=== PATIENT | male | born 1960 | race Caucasian/White ===

== ENCOUNTER → 2016-06-30 | Outpatient (REF) | payer MEDICARE, MEDICAID ==
[~2016-06-30] MED LIST: ACAM0.05 PO; BUPR10TASR PO; EFFE37.527 PO; EFFE75CA75 PO; INDE80CA PO; NORCOTAB PO; OMEP40CA2 PO; PERC5TAB6 PO; PRIM50TA6 PO; TRAZ100T4 PO; TRAZ50TA4 PO; VENL37CA PO; ZONI25CA2 PO
[2016-06-30 12:30] LABS: ALBUMIN 3.7 GM/DL (3.2-5.2); ALBUMIN/GLOBULIN RATIO 1.12 (1.00-1.93); BILIRUBIN,TOTAL 0.4 MG/DL (0.2-1.0); CALCIUM LEVEL 8.9 MG/DL (8.5-10.1); CREATININE FOR GFR 1.34 MG/DL (0.70-1.30); GLOMERULAR FILTRATION RATE 58.5 (>56); POTASSIUM SERUM 4.4 MEQ/L (3.5-5.1)
[2016-06-30 12:36] LABS: BASO # 0.1 K/mm3 (0.0-0.2); BASO % 1.1 % (0.0-1.0); EOS # 0.3 K/mm3 (0.0-0.50); EOS % 5.7 % (0.0-3.0); LYMPH # 1.5 K/mm3 (1.5-4.5); LYMPH % 26.4 % (24.0-44.0); MEAN CORPUSCULAR HGB CONC 34.3 g/dl (32.0-36.5); MEAN CORPUSCULAR VOLUME 93.4 fl (80.0-96.0); MONO # 0.4 K/mm3 (0.0-0.8); MONO % 7.7 % (0.0-5.0); NEUTROPHILS # 3.1 K/mm3 (1.8-7.7); NEUTROPHILS % 57.7 % (36.0-66.0); RED CELL DISTRIBUTION WIDTH 12.7 % (11.5-14.5); WHITE BLOOD COUNT 5.4 K/mm3 (4.0-10.0)
== END ==
LOC: M LABDRAW1 11:25
PROVIDERS: ATTEND Physician Assistant Medical
DX: E04.9 Nontoxic goiter, unspecified (principal); E78.2 Mixed hyperlipidemia; E55.9 Vitamin D deficiency, unspecified; D64.9 Anemia, unspecified

== ENCOUNTER → 2016-07-02 | Day surgery (SDC) | payer MEDICARE, MEDICAID ==
[~2016-07-02] VITALS: Ht 182.9 cm; Wt 95.3 kg
[~2016-07-02] MED LIST changes: +BUPIVACAINE HCL 0.25% 30 ML VIAL As Ordered ONE; +BUPIVACAINE HCL 0.25% 30 ML VIAL XX ONE; +GLYCOPYRROLATE INJ 0.2 MG/ML 2 ML VIAL As Ordered ONE; +KETOROLAC 60 MG/2 ML VIAL (J1885) As Ordered ONE; +LIDOCAINE 1% SDV INJ 30 ML VIAL As Ordered ONE; +LIDOCAINE 2% INJ 100 MG/5 ML SDV (FOR ANES.) As Ordered ONE; +LR 1,000 ML IV SCH; +METOCLOPRAMIDE INJ 10MG/2ML VIAL (J2765) As Ordered ONE; +MIDAZOLAM INJ 2 MG/2 ML VIAL (J2250) As Ordered ONE; +NEOSTIGMINE 1MG/ML 5 ML SYRINGE (J2710) As Ordered ONE; +ONDANSETRON 4MG/2ML VIAL (J2405) As Ordered ONE; +ONDANSETRON 4MG/2ML VIAL (J2405) IV PRN; +PERCOCET 5MG/325MG TAB PO PRN; +PROPOFOL 200 MG/20 ML VIAL As Ordered ONE; +ROCURONIUM BROMIDE 50 MG/5 ML VIAL As Ordered ONE; +dexameTHASONE 4 MG/ML 1ML VIAL (J1100) As Ordered ONE; +ePHEDrine SULFATE 25 MG/5 ML(5MG/ML) SYRINGE As Ordered ONE; +fentaNYL 100 MCG/2 ML INJECTION (J3010) As Ordered ONE; +fentaNYL 250 MCG/5 ML INJECTION (J3010) As Ordered ONE
[2016-07-02] MEDS: fentaNYL 100 MCG/2 ML INJECTION (J3010) IV PRN ×4 (09:30→09:55)
[2016-07-02 11:05] VITALS: BP 131/87
--- NOTE | 2016-07-03 09:07 | RO ---
DATE OF PROCEDURE: 07/02/2016 PREOPERATIVE DIAGNOSIS: Right inguinal hernia. POSTOPERATIVE DIAGNOSIS: Direct right inguinal hernia. PROCEDURE PERFORMED: Right inguinal herniorrhaphy with mesh. SURGEON: Dr. Wilmar Bella. COTTON STOMPER: ANESTHESIA: General. INDICATIONS FOR PROCEDURE: The patient is a 56-year-old man who has noticed discomfort in the right inguinal area. Examination confirmed a small reducible right inguinal hernia. He is now for a right inguinal herniorrhaphy with mesh. OPERATIVE PROCEDURE: The patient was placed under general anesthesia. The patient's lower abdomen, groins and genitalia were prepped and draped in a sterile fashion. An approximately 8-10 cm oblique right lower quadrant incision was made over the course of the inguinal canal. The incision was deepened through the subcutaneous tissues using the cautery. The external oblique was opened in direction of its fibers into the external ring. The spermatic cord was isolated at the pubic tubercle and elevated with a Mireya drain. The cord was freed up to the internal ring. The patient was noted to have a protrusion of preperitoneal fat at the internal ring and this was dissected free from the overlying cord and then clamped, divided and ligated with #0 chromic. The patient also had a significant direct hernia, particularly in the lateral half of the inguinal floor. There was no evidence of an indirect inguinal hernia sac within the spermatic cord. A repair of the inguinal floor was performed in a bikini fashion by placing interrupted simple sutures of #2-0 Ethibond between the shelving edge of the inguinal ligament and the transversalis fascia medially. These were placed primarily to reduce the bulging hernia and allow placement of the mesh. A 6 x 11 cm piece of ultra Pro mesh was then selected. This was lot number [id number]. The mesh was trimmed to fit the inguinal floor. This was sutured at the pubic tubercle with a #3-0 Prolene which was carried along the shelving edge of the inguinal ligament suturing this in place. The mesh had been split to fit about the spermatic cord. The medial portion of the mesh was then tacked down to the underlying internal oblique muscle and fascia using interrupted simple sutures of #3-0 Vicryl. The tails of the mesh were overlapped lateral to the cord and sutured in place with #3-0 Vicryl. This appeared to give a nice reconstruction of the inguinal floor. were infiltrated into the inguinal floor and the spermatic cord. The external oblique was closed with a running suture of #0 Vicryl. The subcutaneous tissues were closed with chromic. The skin edges were approximated with a running subcuticular #4-0 Vicryl and Steri-Strips. An additional 10 mL of 1% Marcaine were infiltrated along the wound edges. Steri-Strips and a light dressing were applied. The patient tolerated the procedure well without apparent complication. He was awakened in the operating room, extubated and moved to the recovery room in stable condition.
== END | disposition home or self-care (01) ==
LOC: M SDC 05:56
PROVIDERS: ATTEND Surgery
DX: K40.90 Unilateral inguinal hernia, without obstruction or gangrene, not specified as recurrent (principal); I25.2 Old myocardial infarction; I10 Essential (primary) hypertension; E04.1 Nontoxic single thyroid nodule; F41.9 Anxiety disorder, unspecified; F32.9 Major depressive disorder, single episode, unspecified; K21.9 Gastro-esophageal reflux disease without esophagitis; Z86.73 Personal history of transient ischemic attack (TIA), and cerebral infarction without residual deficits; Z79.899 Other long term (current) drug therapy; Z85.528 Personal history of other malignant neoplasm of kidney
CPT/HCPCS: 49505; 88302; C1781; J1100; J1885; J2250; J2405; J2710; J2765; J3010

== ENCOUNTER → 2016-09-20 | Outpatient (CLI) | payer MEDICARE, MEDICAID ==
[~2016-09-20] MED LIST changes: -BUPIVACAINE HCL 0.25% 30 ML VIAL As Ordered ONE; -BUPIVACAINE HCL 0.25% 30 ML VIAL XX ONE; -GLYCOPYRROLATE INJ 0.2 MG/ML 2 ML VIAL As Ordered ONE; -KETOROLAC 60 MG/2 ML VIAL (J1885) As Ordered ONE; -LIDOCAINE 1% SDV INJ 30 ML VIAL As Ordered ONE; -LIDOCAINE 2% INJ 100 MG/5 ML SDV (FOR ANES.) As Ordered ONE; -LR 1,000 ML IV SCH; -METOCLOPRAMIDE INJ 10MG/2ML VIAL (J2765) As Ordered ONE; -MIDAZOLAM INJ 2 MG/2 ML VIAL (J2250) As Ordered ONE; -NEOSTIGMINE 1MG/ML 5 ML SYRINGE (J2710) As Ordered ONE; -ONDANSETRON 4MG/2ML VIAL (J2405) As Ordered ONE; -ONDANSETRON 4MG/2ML VIAL (J2405) IV PRN; -PERCOCET 5MG/325MG TAB PO PRN; -PROPOFOL 200 MG/20 ML VIAL As Ordered ONE; -ROCURONIUM BROMIDE 50 MG/5 ML VIAL As Ordered ONE; -dexameTHASONE 4 MG/ML 1ML VIAL (J1100) As Ordered ONE; -ePHEDrine SULFATE 25 MG/5 ML(5MG/ML) SYRINGE As Ordered ONE; -fentaNYL 100 MCG/2 ML INJECTION (J3010) As Ordered ONE; -fentaNYL 250 MCG/5 ML INJECTION (J3010) As Ordered ONE
--- NOTE | 2016-09-20 11:15 | REP ---
MRI LUMBAR SPINE WITHOUT CONTRAST: HISTORY: Back pain. COMPARISON: 11/22/2014. Decreased signal intensity on T2-weighted images is present in the L4-5 and L5-S1 intervertebral discs. The discs are decreased in height. These findings are consistent with disc degeneration. There is no disc bulge or herniation at the L1-2 and L2-3 levels. The nerves exit the neural foramina without compression. A diffuse disc bulge is present at the L3-4 level. There is minimal compression of the thecal sac. There is hypertrophy of the posterior articulating facets. The L3 nerves exit the neural foramina without compression. The patient is status post L4-5 anterior spinal fusion at L4-5, L5-S1 laminectomy. Bone graft material is present. There is no disc bulge or herniation at the L4-5 level. There is hypertrophy of the posterior articulating facets. The L4 nerves exit the neural foramina without compression. There is no disc bulge or herniation at the L5-S1 level. There is hypertrophy of the posterior articulating facets. The L5 nerves exit the neural foramina without compression. There are 8 mm of grade 1 spondylolisthesis of L5 on S1. The conus medullaris is normal in appearance terminating at the level of the T12-L1 intervertebral disc. There is peripheral displacement of the cauda equina at the L4-5 and L5-S1 levels consistent with arachnoiditis. Normal signal intensity is present in the lumbar vertebral body. IMPRESSION: 1. Diffuse disc bulge at the L3-4 level with minimal thecal sac compression. 2. The patient is status post L4-5 anterior spinal fusion and L4-S1 laminectomy. There is grade 1 spondylolisthesis of L5 on S1. 3. Findings consistent with arachnoiditis. There is no significant change compared to the previous study. Signed by Cj Phillip MD 09/20/2016 11:38 A
== END ==
LOC: M PLARAD 09:06
PROVIDERS: ATTEND Physician Assistant Medical
DX: M51.26 Other intervertebral disc displacement, lumbar region (principal); Z98.1 Arthrodesis status

== ENCOUNTER 2016-10-26 09:23 | Outpatient (RCR) | payer MEDICARE, MEDICAID ==
[~2016-10-26 09:23] MED LIST changes: +PERC5TAB12 PO; -PERC5TAB6 PO; +TRAZ-136 PO; -TRAZ100T4 PO; +TRAZ50TA11 PO; -TRAZ50TA4 PO; +VENL37.52 PO; -VENL37CA PO
== END 2016-10-29 ==
LOC: M OT 09:23
PROVIDERS: ATTEND Orthopaedic Surgery
DX: Z51.89 Encounter for other specified aftercare (principal); M77.9 Enthesopathy, unspecified
CPT/HCPCS: 97035; 97140; 97165; G8984; G8985

== ENCOUNTER 2016-11-10 09:30 | Outpatient (RCR) | payer MEDICARE, MEDICAID | END 2016-11-29 | disposition home or self-care (01) | LOC: M OT 09:30 | PROVIDERS: ATTEND Orthopaedic Surgery | DX: Z51.89 Encounter for other specified aftercare (principal); M77.9 Enthesopathy, unspecified ==

== ENCOUNTER → 2016-11-26 | Outpatient (CLI) | payer MEDICARE, MEDICAID ==
--- NOTE | 2016-11-26 10:46 | REP ---
REASON: Back pain. Comparison thoracic spine MRI: None. Axial imaging began at the T4-5 level. The reason for this is unknown to me. There is a mild exaggerated thoracic kyphosis. There is loss of disc hydrational signal and anterior disc space height loss at every level but particularly T5-6 through T8-9 inclusive. The marrow signal is within normal limits. There is no abnormal signal seen in the imaged portion of the spinal cord. At the T5-6 level, there is a tiny central slightly right paracentral disc protrusion which minimally impinges upon the ventral subarachnoid space. There is no disc herniation or foraminal stenosis. There is a broad based annular bulge. At the T6-7 level, there is a mild broad based annular bulge which causes mild compression of the ventral subarachnoid space. There is no disc extrusion, caridad foraminal narrowing, or significant central canal stenosis. At T7-8, there is a mild broad based annular bulge. There is no disc herniation, foraminal narrowing, or central canal stenosis. At T8-9, there is a minimal broad based annular bulge. There is no disc herniation, foraminal narrowing, or central canal stenosis. At T9-10, there is a minimal broad based annular bulge. There is no disc herniation, foraminal narrowing, or central canal stenosis. At T10-11, there is no abnormality. At T11-12, no abnormalities noted. IMPRESSION: Chronic changes as described above with exam limitations. Signed by Jad Bueno DO 11/26/2016 10:51 A
== END ==
LOC: M PLARAD 09:11
PROVIDERS: ATTEND Nurse Practitioner Family
DX: M79.1 Myalgia (principal); M51.26 Other intervertebral disc displacement, lumbar region; M51.36 Other intervertebral disc degeneration, lumbar region; M54.16 Radiculopathy, lumbar region; M96.1 Postlaminectomy syndrome, not elsewhere classified

== ENCOUNTER → 2017-01-11 | Outpatient (REF) | payer MEDICARE, MEDICAID ==
[2017-01-11 11:22] LABS: BASO # 0.1 K/mm3 (0.0-0.2); BASO % 1.1 % (0.0-1.0); EOS # 0.4 K/mm3 (0.0-0.50); EOS % 5.4 % (0.0-3.0); LYMPH # 1.6 K/mm3 (1.5-4.5); LYMPH % 23.4 % (24.0-44.0); MEAN CORPUSCULAR HEMOGLOBIN 31.6 pg (27.0-33.0); MEAN CORPUSCULAR HGB CONC 33.5 g/dl (32.0-36.5); MEAN CORPUSCULAR VOLUME 94.3 fl (80.0-96.0); MONO # 0.5 K/mm3 (0.0-0.8); MONO % 7.4 % (0.0-5.0); NEUTROPHILS # 4.1 K/mm3 (1.8-7.7); NEUTROPHILS % 61.6 % (36.0-66.0); RED CELL DISTRIBUTION WIDTH 12.9 % (11.5-14.5); WHITE BLOOD COUNT 6.6 K/mm3 (4.0-10.0)
[2017-01-11 11:54] LABS: ALBUMIN 3.7 GM/DL (3.2-5.2); ALBUMIN/GLOBULIN RATIO 1.12 (1.00-1.93); BILIRUBIN,TOTAL 0.4 MG/DL (0.2-1.0); CALCIUM LEVEL 9.4 MG/DL (8.5-10.1); CREATININE FOR GFR 1.33 MG/DL (0.70-1.30)
== END ==
LOC: M LABDRAW1 09:45
PROVIDERS: ATTEND Physician Assistant Medical
DX: E78.2 Mixed hyperlipidemia (principal); D64.9 Anemia, unspecified; E55.9 Vitamin D deficiency, unspecified

== ENCOUNTER → 2017-05-11 | Outpatient (CLI) | payer MEDICARE, MEDICAID | LOC: M RAD 13:20 | DX: R39.14 Feeling of incomplete bladder emptying (principal) | CPT/HCPCS: 76857 ==

== ENCOUNTER → 2017-06-18 | Outpatient (CLI) | payer MEDICARE, MEDICAID ==
[2017-06-21 14:11] LABS: INSULIN LEVEL 20.7 uIU/mL (2.6-24.9)
[2017-06-21 14:11] LABS: C-PEPTIDE 7.5 ng/mL (1.1-4.4)
== END ==
LOC: M LAB 11:22
DX: M47.892 Other spondylosis, cervical region (principal); M47.896 Other spondylosis, lumbar region; E66.9 Obesity, unspecified; M50.30 Other cervical disc degeneration, unspecified cervical region
CPT/HCPCS: 72052

== ENCOUNTER → 2017-07-06 | Outpatient (CLI) | payer MEDICARE, MEDICAID ==
[2017-07-06 12:11] LABS: HEMATOCRIT 41.4 % (42.0-52.0); HEMOGLOBIN 13.7 g/dl (14.0-18.0); MEAN CORPUSCULAR HEMOGLOBIN 30.7 pg (27.0-33.0); MEAN CORPUSCULAR HGB CONC 33.1 g/dl (32.0-36.5); MEAN CORPUSCULAR VOLUME 92.8 fl (80.0-96.0); PLATELET COUNT, AUTOMATED 317 10^3/uL (150-450); RED BLOOD COUNT 4.46 10^6/uL (4.30-6.10); RED CELL DISTRIBUTION WIDTH 12.4 % (11.5-14.5); WHITE BLOOD COUNT 7.4 10^3/uL (4.0-10.0)
[2017-07-06 12:52] LABS: TESTOSTERONE 505 NG/DL (241-827)
[2017-07-06 13:07] LABS: ALBUMIN 3.7 GM/DL (3.2-5.2); ALBUMIN/GLOBULIN RATIO 1.03 (1.00-1.93); ALKALINE PHOSPHATASE 138 U/L (45-117); ALT/SGPT 62 U/L (12-78); ANION GAP 7 MEQ/L (8-16); AST/SGOT 32 U/L (7-37); BILIRUBIN,TOTAL 0.6 MG/DL (0.2-1.0); BLOOD UREA NITROGEN 28 MG/DL (7-18); CALCIUM LEVEL 9.1 MG/DL (8.5-10.1); CARBON DIOXIDE LEVEL 26 MEQ/L (21-32); CHLORIDE LEVEL 105 MEQ/L (98-107); CHOLESTEROL LEVEL 264 MG/DL (<200); CHOLESTEROL RISK RATIO 3.616 (<5); CREATININE FOR GFR 1.46 MG/DL (0.70-1.30); GLOMERULAR FILTRATION RATE 52.8 (>56); GLUCOSE, FASTING 88 MG/DL (70-100); HDL CHOLESTEROL 73 MG/DL (>40); LDL CHOLESTEROL 164.2 MG/DL (<100); NON-HDL-C 191 MG/DL; PROSTATIC SPECIFIC AG MONITOR 0.67 NG/ML (< 4.0); SODIUM LEVEL 138 MEQ/L (136-145); THYROID STIMULATING HORMONE 0.569 uIU/ML (0.358-3.740); TOTAL PROTEIN 7.3 GM/DL (6.4-8.2); TRIGLYCERIDES LEVEL 134 MG/DL (<150)
[2017-07-06 13:10] LABS: POTASSIUM SERUM 5.3 MEQ/L (3.5-5.1)
[2017-07-06 15:20] LABS: ESTIMATED AVERAGE GLUCOSE 114 MG/DL (60-110); HEMOGLOBIN A1c 5.6 %
== END ==
LOC: M LAB 11:15
DX: I10 Essential (primary) hypertension (principal); R53.83 Other fatigue; E03.9 Hypothyroidism, unspecified; Z79.899 Other long term (current) drug therapy
CPT/HCPCS: 71046

== ENCOUNTER 2017-09-21 09:56 | Day surgery (SDC) | payer MEDICARE, MEDICAID ==
[~2017-09-21 09:56] MED LIST changes: -ACAM0.05 PO; -BUPR10TASR PO; -EFFE37.527 PO; -EFFE75CA75 PO; -INDE80CA PO; +LIDOCAINE 2% INJ 100 MG/5 ML SDV (FOR ANES.) As Ordered; +MIDAZOLAM INJ 2 MG/2 ML VIAL (J2250) As Ordered; -NORCOTAB PO; -OMEP40CA2 PO; -PERC5TAB12 PO; -PRIM50TA6 PO; +PROPOFOL 200 MG/20 ML VIAL As Ordered; -TRAZ-136 PO; -TRAZ50TA11 PO; -VENL37.52 PO; -ZONI25CA2 PO; +fentaNYL 250 MCG/5 ML INJECTION (J3010) As Ordered
[2017-09-21] MEDS: LR 1,000 ML IV (10:50)
[2017-09-21] MEDS: LIDOCAINE 1% SDV INJ 30 ML VIAL As Ordered (12:14)
[2017-09-21] MEDS ORDERED: GLYCOPYRROLATE INJ 0.2 MG/ML 2 ML VIAL As Ordered (12:49)
[2017-09-21] MEDS ORDERED: METOCLOPRAMIDE INJ 10MG/2ML VIAL (J2765) As Ordered (13:17)
[2017-09-21] MEDS ORDERED: ONDANSETRON 4MG/2ML VIAL (J2405) As Ordered (13:17)
[2017-09-21] MEDS ORDERED: dexameTHASONE 4 MG/ML 1ML VIAL (J1100) As Ordered (13:17)
[2017-09-21] MEDS ORDERED: ePHEDrine SULFATE 25 MG/5 ML(5MG/ML) SYRINGE As Ordered (13:25)
[2017-09-21] MEDS: methylPREDNISolone SUSP 40 MG/ML (DEPO-medrol) VIAL (J1030) As Ordered (13:36)
[2017-09-21] MEDS ORDERED: PERCOCET 5MG/325MG TAB As Ordered (13:52)
[2017-09-21] MEDS: PERCOCET 5MG/325MG TAB PO ×2 (14:05→14:35)
[2017-09-21] MEDS ORDERED: fentaNYL 100 MCG/2 ML INJECTION (J3010) IV (14:15)
[2017-09-21] MEDS ORDERED: ONDANSETRON 4MG/2ML VIAL (J2405) IV (14:15)
[2017-09-21] MEDS ORDERED: NORCO, ANEXSIA 5/325MG TABLET (HYDROcodone/ACETAMINOPHEN) PO (14:15)
[2017-09-21] MEDS ORDERED: LR 1,000 ML IV (14:15)
== END 2017-09-21 15:45 | disposition home or self-care (01) ==
LOC: M SDC 09:56
DX: G56.22 Lesion of ulnar nerve, left upper limb (principal); I12.9 Hypertensive chronic kidney disease with stage 1 through stage 4 chronic kidney disease, or unspecified chronic kidney disease; K21.9 Gastro-esophageal reflux disease without esophagitis; Z85.528 Personal history of other malignant neoplasm of kidney; Z85.828 Personal history of other malignant neoplasm of skin; F41.9 Anxiety disorder, unspecified; F32.9 Major depressive disorder, single episode, unspecified; R33.9 Retention of urine, unspecified; G47.9 Sleep disorder, unspecified; G25.81 Restless legs syndrome; M54.81 Occipital neuralgia; M46.1 Sacroiliitis, not elsewhere classified; M96.1 Postlaminectomy syndrome, not elsewhere classified; M43.17 Spondylolisthesis, lumbosacral region; M47.892 Other spondylosis, cervical region; G56.03 Carpal tunnel syndrome, bilateral upper limbs; I25.2 Old myocardial infarction; M19.90 Unspecified osteoarthritis, unspecified site; Z86.73 Personal history of transient ischemic attack (TIA), and cerebral infarction without residual deficits; R51 Headache; N18.3 Chronic kidney disease, stage 3 (moderate); Z79.899 Other long term (current) drug therapy
CPT/HCPCS: 64718

== ENCOUNTER → 2017-10-27 | Outpatient (CLI) | payer MEDICARE, MEDICAID | LOC: M RAD 10:03 | DX: R39.14 Feeling of incomplete bladder emptying (principal); R39.198 Other difficulties with micturition | CPT/HCPCS: 76857 ==

== ENCOUNTER → 2017-12-15 | Outpatient (CLI) | payer MEDICARE, MEDICAID ==
[2017-12-15 11:17] LABS: HEMATOCRIT 40.3 % (42.0-52.0); HEMOGLOBIN 13.6 g/dl (13.5-17.5); MEAN CORPUSCULAR HEMOGLOBIN 31.8 pg (27.0-33.0); MEAN CORPUSCULAR HGB CONC 33.7 g/dl (32.0-36.5); MEAN CORPUSCULAR VOLUME 94.2 fl (80.0-96.0); PLATELET COUNT, AUTOMATED 251 10^3/uL (150-450); RED BLOOD COUNT 4.28 10^6/uL (4.30-6.10); WHITE BLOOD COUNT 6.2 10^3/uL (4.0-10.0)
[2017-12-15 11:28] LABS: INR 0.98; PROTHROMBIN TIME 13.1 SECONDS (12.1-14.4)
[2017-12-15 11:52] LABS: ALBUMIN 3.5 GM/DL (3.2-5.2); ALBUMIN/GLOBULIN RATIO 0.95 (1.00-1.93); ALKALINE PHOSPHATASE 131 U/L (45-117); ALT/SGPT 56 U/L (12-78); ANION GAP 7 MEQ/L (8-16); AST/SGOT 24 U/L (7-37); BILIRUBIN,TOTAL 0.3 MG/DL (0.2-1.0); BLOOD UREA NITROGEN 20 MG/DL (7-18); CARBON DIOXIDE LEVEL 28 MEQ/L (21-32); CHLORIDE LEVEL 102 MEQ/L (98-107); CHOLESTEROL LEVEL 265 MG/DL (<200); CREATININE FOR GFR 1.24 MG/DL (0.70-1.30); GLOMERULAR FILTRATION RATE > 60.0 (>56); GLUCOSE, FASTING 99 MG/DL (70-100); HDL CHOLESTEROL 73 MG/DL (>40); LDL CHOLESTEROL 162.8 MG/DL (<100); NON-HDL-C 192 MG/DL; SODIUM LEVEL 137 MEQ/L (136-145); TOTAL PROTEIN 7.2 GM/DL (6.4-8.2); TRIGLYCERIDES LEVEL 146 MG/DL (<150)
[2017-12-15 12:00] LABS: POTASSIUM SERUM 5.2 MEQ/L (3.5-5.1)
[2017-12-15 12:54] LABS: ESTIMATED AVERAGE GLUCOSE 111 MG/DL (60-110); HEMOGLOBIN A1c 5.5 %
== END ==
LOC: M LAB 10:28
DX: Z01.818 Encounter for other preprocedural examination (principal); I10 Essential (primary) hypertension
CPT/HCPCS: 71046

== ENCOUNTER → 2018-02-24 | Outpatient (CLI) | payer MEDICARE, MEDICAID | LOC: M RAD 12:32 | DX: Z01.818 Encounter for other preprocedural examination (principal); N18.3 Chronic kidney disease, stage 3 (moderate); E87.5 Hyperkalemia; Z98.1 Arthrodesis status | CPT/HCPCS: 72040 ==

== ENCOUNTER → 2018-02-24 | Outpatient (CLI) | payer MEDICARE, MEDICAID ==
[2018-02-24 14:54] LABS: ALBUMIN 3.6 GM/DL (3.2-5.2); ANION GAP 9 MEQ/L (8-16); BLOOD UREA NITROGEN 23 MG/DL (7-18); CALCIUM LEVEL 8.8 MG/DL (8.5-10.1); CARBON DIOXIDE LEVEL 23 MEQ/L (21-32); CHLORIDE LEVEL 105 MEQ/L (98-107); CREATININE FOR GFR 1.31 MG/DL (0.70-1.30); GLOMERULAR FILTRATION RATE 59.8 (>56); GLUCOSE, FASTING 100 MG/DL (70-100); PHOSPHORUS LEVEL 3.4 MG/DL (2.5-4.9); POTASSIUM SERUM 4.8 MEQ/L (3.5-5.1); SODIUM LEVEL 137 MEQ/L (136-145)
== END ==
LOC: M LAB 12:24
DX: N18.3 Chronic kidney disease, stage 3 (moderate) (principal); E87.5 Hyperkalemia

== ENCOUNTER 2023-08-09 10:10 | Emergency (ER) | payer MEDICARE, MEDICAID ==
[~2023-08-09] VITALS: Ht 182.9 cm; Wt 97.2 kg
[~2023-08-09 10:10] MED LIST changes: +ACAM0.05 PO; +ACET650S3 PO; +BUPR10TASR PO; +CEPA0.05 MT; +CIPR-250 PO; +EFFE37.52 PO; +EFFE75CA2 PO; +FLOM0.4C39 PO; +HYDR-3713; +HYDR-3715 PO; +INDE80CA9 PO; -LIDOCAINE 2% INJ 100 MG/5 ML SDV (FOR ANES.) As Ordered; +LISI10TA22 PO; +LISI20TA33 PO; +MEDICAL MARJUANA PO; -MIDAZOLAM INJ 2 MG/2 ML VIAL (J2250) As Ordered; +OMEP40CA4 PO; +OXYC1TAB23 PO; +PERC5TAB12 PO; +PRIM50TA6 PO; -PROPOFOL 200 MG/20 ML VIAL As Ordered; +TRAZ-252 PO; +TRAZ-257 PO; +VENL37.52 PO; +ZONI100C67 PO; +ZONI25CA13 PO; +ZONI50CA11; -fentaNYL 250 MCG/5 ML INJECTION (J3010) As Ordered
[2023-08-09] MEDS ORDERED: MIRT1TAB16 PO (10:25)
[2023-08-09] MEDS ORDERED: HYDR12.55 PO (10:25)
[2023-08-09] MEDS ORDERED: BUPR-69 PO (10:25)
[2023-08-09] MEDS ORDERED: XANA0.5T PO (10:25)
[2023-08-09] MEDS ORDERED: FOLI1TAB11 PO (10:25)
[2023-08-09] MEDS ORDERED: AMLO10TA PO (10:25)
[2023-08-09] MEDS ORDERED: SILD100T PO (10:25)
[2023-08-09 16:20] VITALS: BP 150/82; TEMP 97.3; O2SAT 98
== END 2023-08-09 16:22 | disposition home or self-care (01) ==
LOC: M ED 14:05
DX: M54.50 Low back pain, unspecified (principal); M51.36 Other intervertebral disc degeneration, lumbar region; Z98.1 Arthrodesis status; I10 Essential (primary) hypertension; K21.9 Gastro-esophageal reflux disease without esophagitis; F10.10 Alcohol abuse, uncomplicated; Z86.711 Personal history of pulmonary embolism; Z79.1 Long term (current) use of non-steroidal anti-inflammatories (NSAID); Z79.83 Long term (current) use of bisphosphonates; Z79.899 Other long term (current) drug therapy

== ENCOUNTER → 2023-08-15 | Outpatient (CLI) | payer MEDICARE, MEDICAID ==
[~2023-08-15] MED LIST changes: +AMLO10TA PO; +BUPR-69 PO; +FOLI1TAB11 PO; +HYDR12.55 PO; +MIRT1TAB16 PO; +SILD100T PO; +XANA0.5T PO
[2023-08-15 15:48] LABS: HEMATOCRIT 43.8 % (42.0-52.0); HEMOGLOBIN 14.9 g/dl (13.5-17.5); MEAN CORPUSCULAR HEMOGLOBIN 33.3 pg (27.0-33.0); PLATELET COUNT, AUTOMATED 210 10^3/uL (150-450); RED BLOOD COUNT 4.47 10^6/uL (4.30-6.10); WHITE BLOOD COUNT 8.3 10^3/uL (4.0-10.0)
[2023-08-15 16:16] LABS: PROSTATIC SPECIFIC AG MONITOR 0.57 NG/ML (< 4.00)
[2023-08-15 16:21] LABS: THYROID STIMULATING HORMONE 1.446 uIU/ML (0.55-4.78)
[2023-08-15 17:57] LABS: ALBUMIN 3.3 G/DL (3.2-5.2); ALKALINE PHOSPHATASE 166 U/L (46-116); ALT/SGPT 105 U/L (7.0-40); AST/SGOT 73 U/L (<34); BILIRUBIN,TOTAL 0.4 MG/DL (0.3-1.2); BLOOD UREA NITROGEN 21 MG/DL (9-23); CALCIUM LEVEL 8.9 MG/DL (8.3-10.6); CARBON DIOXIDE LEVEL 29 MMOL/L (20-31); CHLORIDE LEVEL 106 MMOL/L (98-107); CHOLESTEROL LEVEL 174 MG/DL (<200); CHOLESTEROL RISK RATIO 2.35 (<5); CREATININE FOR GFR 1.08 MG/DL (0.70-1.30); GLOMERULAR FILTRATION RATE > 60.0 (>49); GLUCOSE, FASTING 80 MG/DL (74-106); LDL CHOLESTEROL 71.8 MG/DL (<100); POTASSIUM SERUM 4.8 MMOL/L (3.5-5.1); SODIUM LEVEL 142 MMOL/L (136-145); TOTAL PROTEIN 6.7 G/DL (5.7-8.2); TRIGLYCERIDES LEVEL 141 MG/DL (<150)
== END ==
LOC: M PLAIMG 13:33
PROVIDERS: ATTEND Family Medicine
DX: R53.83 Other fatigue (principal); I10 Essential (primary) hypertension; E03.9 Hypothyroidism, unspecified; M54.30 Sciatica, unspecified side; Z79.899 Other long term (current) drug therapy

== ENCOUNTER → 2023-08-15 | Outpatient (CLI) | payer MEDICARE, MEDICAID | LOC: M EKG 14:06 | PROVIDERS: ATTEND Family Medicine | DX: R53.83 Other fatigue (principal); I10 Essential (primary) hypertension; E03.9 Hypothyroidism, unspecified; M54.30 Sciatica, unspecified side ==

== ENCOUNTER → 2023-10-20 | Outpatient (CLI) | payer MEDICARE, MEDICAID ==
[2023-10-20 12:15] LABS: HEMATOCRIT 43.4 % (42.0-52.0); HEMOGLOBIN 14.6 g/dl (13.5-17.5); MEAN CORPUSCULAR HEMOGLOBIN 32.2 pg (27.0-33.0); MEAN CORPUSCULAR HGB CONC 33.6 g/dl (32.0-36.5); MEAN CORPUSCULAR VOLUME 95.8 fl (80.0-96.0); PLATELET COUNT, AUTOMATED 231 10^3/uL (150-450); RED BLOOD COUNT 4.53 10^6/uL (4.30-6.10); WHITE BLOOD COUNT 5.9 10^3/uL (4.0-10.0)
[2023-10-20 12:23] LABS: HEMOGLOBIN A1c 5.2 % (4.0-6.0)
[2023-10-20 12:46] LABS: ALBUMIN 3.4 G/DL (3.2-5.2); ALKALINE PHOSPHATASE 149 U/L (46-116); ALT/SGPT 97 U/L (7.0-40); AST/SGOT 47 U/L (<34); BILIRUBIN,TOTAL 0.6 MG/DL (0.3-1.2); BLOOD UREA NITROGEN 16 MG/DL (9-23); CALCIUM LEVEL 9.4 MG/DL (8.3-10.6); CARBON DIOXIDE LEVEL 26 MMOL/L (20-31); CHLORIDE LEVEL 105 MMOL/L (98-107); CHOLESTEROL LEVEL 213 MG/DL (<200); CHOLESTEROL RISK RATIO 2.84 (<5); CREATININE FOR GFR 1.01 MG/DL (0.70-1.30); GLOMERULAR FILTRATION RATE > 60.0 (>49); GLUCOSE, FASTING 104 MG/DL (74-106); LDL CHOLESTEROL 93.8 MG/DL (<100); POTASSIUM SERUM 4.2 MMOL/L (3.5-5.1); PROSTATIC SPECIFIC AG MONITOR 0.75 NG/ML (< 4.00); SODIUM LEVEL 136 MMOL/L (136-145); THYROID STIMULATING HORMONE 2.046 uIU/ML (0.55-4.78); THYROXINE (T4) 6.7 UG/DL (4.5-10.9); TOTAL PROTEIN 6.5 G/DL (5.7-8.2); TOTAL T3 99.8 NG/DL (60.0-181.0); TRIGLYCERIDES LEVEL 221 MG/DL (<150)
[2023-10-20 12:47] LABS: TESTOSTERONE 530 NG/DL (241-827)
== END ==
LOC: M LAB 10:21
PROVIDERS: ATTEND Family Medicine
DX: R53.83 Other fatigue (principal); I10 Essential (primary) hypertension; E03.9 Hypothyroidism, unspecified; Z79.899 Other long term (current) drug therapy

== ENCOUNTER → 2023-10-24 | Outpatient (CLI) | payer MEDICARE, MEDICAID ==
[~2023-10-24] MED LIST changes: +PROHANCE 279.3MG/ML 15ML VIAL As Ordered ONE; +PROHANCE 279.3MG/ML 5ML VIAL As Ordered ONE
== END ==
LOC: M RAD 10:44
PROVIDERS: ATTEND Pain Medicine Interventional Pain Medicine
DX: M96.1 Postlaminectomy syndrome, not elsewhere classified (principal)
CPT/HCPCS: 72158; A9576

== ENCOUNTER → 2023-12-06 | Outpatient (REF) | payer MEDICARE, MEDICAID ==
[~2023-12-06] MED LIST changes: -PROHANCE 279.3MG/ML 15ML VIAL As Ordered ONE; -PROHANCE 279.3MG/ML 5ML VIAL As Ordered ONE
== END ==
LOC: M LAB REF 16:16
PROVIDERS: ATTEND Physician Assistant
DX: B34.9 Viral infection, unspecified (principal)

== ENCOUNTER → 2024-06-05 | Outpatient (CLI) | payer MEDICARE, MEDICAID ==
[2024-06-05 18:03] LABS: BASO # 0.1 10^3/uL (0.0-0.2); BASO % 1.2 % (0.0-1.0); EOS # 0.6 10^3/uL (0.0-0.5); EOS % 6.7 % (0.0-3.0); HEMATOCRIT 43.1 % (42.0-52.0); HEMOGLOBIN 14.6 g/dl (13.5-17.5); LYMPH # 2.2 10^3/uL (1.5-5.0); LYMPH % 26.2 % (24.0-44.0); MEAN CORPUSCULAR HEMOGLOBIN 32.8 pg (27.0-33.0); MEAN CORPUSCULAR HGB CONC 33.9 g/dl (32.0-36.5); MEAN CORPUSCULAR VOLUME 96.9 fl (80.0-96.0); MONO # 0.8 10^3/uL (0.0-0.8); MONO % 9.1 % (2.0-8.0); NEUTROPHILS # 4.8 10^3/uL (1.5-8.5); NEUTROPHILS % 56.2 % (36.0-66.0); PLATELET COUNT, AUTOMATED 292 10^3/uL (150-450); RED BLOOD COUNT 4.45 10^6/uL (4.30-6.10); WHITE BLOOD COUNT 8.5 10^3/uL (4.0-10.0)
[2024-06-05 18:35] LABS: ALBUMIN 3.3 G/DL (3.2-5.2); ALKALINE PHOSPHATASE 143 U/L (40-129); ALT/SGPT 99 U/L (7.0-40); AST/SGOT 47 U/L (<34); BILIRUBIN,TOTAL 0.4 MG/DL (0.3-1.2); BLOOD UREA NITROGEN 23 MG/DL (9-23); CALCIUM LEVEL 9.2 MG/DL (8.3-10.6); CARBON DIOXIDE LEVEL 32 MMOL/L (20-31); CHLORIDE LEVEL 101 MMOL/L (98-107); CHOLESTEROL LEVEL 222 MG/DL (<200); CHOLESTEROL RISK RATIO 2.82 (<5); GLOMERULAR FILTRATION RATE > 60.0 (>49); GLUCOSE, FASTING 68 MG/DL (74-106); HDL CHOLESTEROL 78.7 MG/DL (>40); LDL CHOLESTEROL 104.1 MG/DL (<100); MAGNESIUM LEVEL 1.7 MG/DL (1.8-2.4); NON-HDL-C 143.3 MG/DL; POTASSIUM SERUM 4.1 MMOL/L (3.5-5.1); SODIUM LEVEL 141 MMOL/L (136-145); TRIGLYCERIDES LEVEL 196 MG/DL (<150)
== END ==
LOC: M PLALAB 15:56
PROVIDERS: ATTEND Registered Nurse
DX: I10 Essential (primary) hypertension (principal)

== ENCOUNTER → 2024-07-09 | Outpatient (CLI) | payer MEDICARE, MEDICAID ==
[2024-07-09 16:18] LABS: FREE T4 1.24 NG/DL (0.89-1.76); THYROID STIMULATING HORMONE 2.497 uIU/ML (0.55-4.78)
== END ==
LOC: M PLALAB 10:33
PROVIDERS: ATTEND Internal Medicine Endocrinology, Diabetes & Metabolism
DX: E04.2 Nontoxic multinodular goiter (principal)

== ENCOUNTER → 2024-08-08 | Outpatient (CLI) | payer MEDICARE, MEDICAID ==
[~2024-08-08] MED LIST changes: +ATOR1TAB21; +BRIN1TAB3; +HYDR-3490; +LOSA50TA28; +MEMA10TA; +METH-1386; +ONDA-282 PO; +SAVA1TAB6 PO; +TERB250T91; +VALA1TAB5; +VITA100T28 PO; +ZOLP10TA2
== END ==
LOC: M CARPUL 16:17
PROVIDERS: ATTEND Registered Nurse
DX: R06.02 Shortness of breath (principal); I26.99 Other pulmonary embolism without acute cor pulmonale

== ENCOUNTER 2024-11-02 22:39 | Emergency (ER) | payer MEDICARE, MEDICAID ==
[~2024-11-02] VITALS: Ht 182.9 cm; Wt 105.2 kg
[~2024-11-02 22:39] MED LIST changes: +AMLO-751 PO; -AMLO10TA PO; -ATOR1TAB21; +ATOR1TAB21 PO; -BRIN1TAB3; +BRIN1TAB3 PO; +ESZO1TAB6 PO; -FLOM0.4C39 PO; -LOSA50TA28; +LOSA50TA28 PO; -MEMA10TA; +MEMA10TA PO; -METH-1386; +METH-1386 PO; +TAMS-18 PO; -TERB250T91; +TERB250T91 PO; -VALA1TAB5; +VALA1TAB5 PO
[2024-11-02 23:52] LABS: BASO # 0.1 10^3/uL (0.0-0.2); BASO % 0.8 % (0.0-1.0); EOS # 0.4 10^3/uL (0.0-0.5); EOS % 5.9 % (0.0-3.0); LYMPH # 2.0 10^3/uL (1.5-5.0); LYMPH % 28.0 % (24.0-44.0); MONO # 0.7 10^3/uL (0.0-0.8); MONO % 10.5 % (2.0-8.0); NEUTROPHILS # 3.9 10^3/uL (1.5-8.5); NEUTROPHILS % 54.5 % (36.0-66.0); PLATELET COUNT, AUTOMATED 223 10^3/uL (150-450)
[2024-11-03 00:06] LABS: INR 1.11
[2024-11-03 00:08] LABS: CREATININE FOR GFR 0.99 MG/DL (0.70-1.30)
[2024-11-03 00:09] LABS: CALCIUM LEVEL 8.3 MG/DL (8.3-10.6); CARBON DIOXIDE LEVEL 22.0 MMOL/L (20-31); CHLORIDE LEVEL 105.0 MMOL/L (98-107); GLOMERULAR FILTRATION RATE 84.5 (>49); POTASSIUM SERUM 4.6 MMOL/L (3.5-5.1); SODIUM LEVEL 142.0 MMOL/L (136-145)
[2024-11-03] MEDS: ACETAMINOPHEN *IV* 1,000 MG in IV 1 EA IV ONE (01:25)
[2024-11-03] MEDS: DERMABOND TOPICAL SKIN ADHESIVE TOP ONE (02:11)
[2024-11-03] MEDS: METHOCARBAMOL 1,000 MG/10 ML VIAL IV ONE (03:45)
[2024-11-03] MEDS: ONDANSETRON 4MG 2ML VIAL IV ONE (03:46)
[2024-11-03] MEDS: MORPHINE 4 MG/ML 1 ML VIAL IV PRN (03:46)
[2024-11-03 05:06] VITALS: O2SAT 98
[2024-11-03 06:13] VITALS: TEMP 98.2
[2024-11-03 06:44] VITALS: BP 135/80; O2SAT 98
== END 2024-11-03 06:45 | disposition home or self-care (01) ==
LOC: M ED 22:39
DX: F10.129 Alcohol abuse with intoxication, unspecified (principal); S00.81XA Abrasion of other part of head, initial encounter; W07.XXXA Fall from chair, initial encounter; K21.9 Gastro-esophageal reflux disease without esophagitis; E78.5 Hyperlipidemia, unspecified; I10 Essential (primary) hypertension; F19.10 Other psychoactive substance abuse, uncomplicated; Z86.718 Personal history of other venous thrombosis and embolism; Z79.83 Long term (current) use of bisphosphonates; Z79.899 Other long term (current) drug therapy; Y92.009 Unspecified place in unspecified non-institutional (private) residence as the place of occurrence of the external cause; Y93.89 Activity, other specified; Y99.9 Unspecified external cause status
CPT/HCPCS: 70450; 72125; 72131; 80048; 82077; 85025; 85610; 85730; 96365; 96375; 99285; J0131; J2405; J2800

== ENCOUNTER → 2025-01-02 | Outpatient (CLI) | payer MEDICARE, MEDICAID ==
[2025-01-02 18:42] LABS: FREE T4 1.28 NG/DL (0.89-1.76)
== END ==
LOC: M PLALAB 15:21
PROVIDERS: ATTEND Nurse Practitioner Family
DX: E04.2 Nontoxic multinodular goiter (principal)

== ENCOUNTER 2025-01-09 09:24 | Emergency (ER) | payer MEDICARE, MEDICAID ==
[~2025-01-09] VITALS: Ht 172.7 cm; Wt 100.9 kg
[~2025-01-09 09:24] MED LIST changes: +ZOLP10TA11; -ZOLP10TA2
[2025-01-09 10:23] LABS: BASO # 0.1 10^3/uL (0.0-0.2); BASO % 1.2 % (0.0-1.0); EOS # 0.5 10^3/uL (0.0-0.5); EOS % 7.5 % (0.0-3.0); LYMPH # 1.9 10^3/uL (1.5-5.0); LYMPH % 27.6 % (24.0-44.0); MONO # 0.8 10^3/uL (0.0-0.8); MONO % 11.0 % (2.0-8.0); NEUTROPHILS # 3.6 10^3/uL (1.5-8.5); NEUTROPHILS % 52.4 % (36.0-66.0); PLATELET COUNT, AUTOMATED 274 10^3/uL (150-450)
[2025-01-09 10:34] LABS: INR 0.99
[2025-01-09 10:46] LABS: CK-MB VALUE MASS < 1.0 NG/ML (<3.6)
[2025-01-09 10:48] LABS: ALT/SGPT 93 U/L (7.0-40); AST/SGOT 59 U/L (<34); CALCIUM LEVEL 9.3 MG/DL (8.3-10.6); CARBON DIOXIDE LEVEL 28 MMOL/L (20-31); CHLORIDE LEVEL 104 MMOL/L (98-107); CREATININE FOR GFR 0.87 MG/DL (0.70-1.30); GLOMERULAR FILTRATION RATE > 90.0 (>49); POTASSIUM SERUM 5.0 MMOL/L (3.5-5.1); SODIUM LEVEL 141 MMOL/L (136-145)
[2025-01-09 10:51] LABS: CPK CREATINE PHOSPHOKINASE 65 U/L (46-171)
[2025-01-09 12:02] LABS: CK-MB VALUE MASS < 1.0 NG/ML (<3.6)
[2025-01-09 12:04] LABS: CPK CREATINE PHOSPHOKINASE 54 U/L (46-171)
[2025-01-09] MEDS ORDERED: BUPR200T45 PO (12:29)
[2025-01-09] MEDS ORDERED: TIZA10TA PO (12:29)
[2025-01-09] MEDS ORDERED: PRIM250T8 PO (12:29)
[2025-01-09] MEDS ORDERED: MAGN400T35 PO (12:29)
[2025-01-09] MEDS ORDERED: SAVA1TAB6 PO (12:29)
[2025-01-09] MEDS ORDERED: HOME MED LIST COMPLETE! XX SCH (12:30)
[2025-01-09] MEDS ORDERED: ISOVUE-370 76% 100 ML VIAL As Ordered ONE (12:42)
[2025-01-09] MEDS ORDERED: PRED20TA PO (14:47)
[2025-01-09 15:31] VITALS: BP 177/95; TEMP 97.1; O2SAT 99
== END 2025-01-09 15:35 | disposition home or self-care (01) ==
LOC: M ED 09:24 → EDBD 09:24 → M ED 15:35
DX: R07.9 Chest pain, unspecified (principal); R00.1 Bradycardia, unspecified; M51.360 Other intervertebral disc degeneration, lumbar region with discogenic back pain only; K40.90 Unilateral inguinal hernia, without obstruction or gangrene, not specified as recurrent; N28.1 Cyst of kidney, acquired; K57.30 Diverticulosis of large intestine without perforation or abscess without bleeding; K21.9 Gastro-esophageal reflux disease without esophagitis; N18.9 Chronic kidney disease, unspecified; F10.10 Alcohol abuse, uncomplicated; Z86.79 Personal history of other diseases of the circulatory system; Z86.711 Personal history of pulmonary embolism; Z86.718 Personal history of other venous thrombosis and embolism; Z79.02 Long term (current) use of antithrombotics/antiplatelets; Z79.52 Long term (current) use of systemic steroids; Z79.899 Other long term (current) drug therapy
CPT/HCPCS: 71045; 71275; 74177; 80048; 80076; 82550; 82553; 83690; 83880; 84443; 84484; 85025; 85610; 85730; 93005; 93041; 94760; 96374; 99285; J1100; Q9967

== ENCOUNTER → 2025-02-20 | Outpatient (CLI) | payer MEDICARE, MEDICAID ==
[~2025-02-20] MED LIST changes: +B-122500 PO; +BUPR200T45 PO; +MAGN400T35 PO; +PERI12LIQ; +PRED20TA PO; +PRIM250T8 PO; +PROP40TA62; +TIZA10TA PO
== END ==
LOC: M RAD 13:05
PROVIDERS: ATTEND Nurse Practitioner Family
DX: E04.2 Nontoxic multinodular goiter (principal)